=== PATIENT | male | born 1960 | race Caucasian/White ===

== ENCOUNTER 2017-11-10 16:50 | Emergency (ER) | payer OTHER ==
[~2017-11-10] VITALS: Ht 172.7 cm; Wt 104.3 kg
[~2017-11-10 16:50] MED LIST: ALBUTEROL0.09 MG/A2 INH; AUGMENTIN 875 M1 TAB PO; CLARITIN10 MG PO; IBU800 MG PO; KEFLEX500 MG PO; MEDROL DOSEPAK4 MG PO; Motrin,Rufen800 MG PO; PREDNICOT20 MG PO; PREDNISONE50 MG PO; VICODIN ES 7501 TAB PO
[2017-11-10] MEDS ORDERED: CYCLOBENZAPRINE10 MG PO (18:54)
[2017-11-10] MEDS ORDERED: NAPROSYN500 MG PO (18:54)
== END 2017-11-10 18:59 | disposition home or self-care (01) ==
LOC: ED 16:50
DX: S29.012A Strain of muscle and tendon of back wall of thorax, initial encounter (principal); R07.81 Pleurodynia; Z79.899 Other long term (current) drug therapy; W10.9XXA Fall (on) (from) unspecified stairs and steps, initial encounter; Y93.89 Activity, other specified; Y92.89 Other specified places as the place of occurrence of the external cause; Y99.9 Unspecified external cause status

== ENCOUNTER 2024-03-15 10:04 | Emergency (ER) | payer OTHER ==
[~2024-03-15] VITALS: Ht 172.7 cm; Wt 99.8 kg
[~2024-03-15 10:04] MED LIST changes: +CYCLOBENZAPRINE10 MG PO; +NAPROSYN500 MG PO
[2024-03-15] MEDS ORDERED: ATENOLOL25 MG PO (10:11)
[2024-03-15] MEDS ORDERED: DULOXETINE HCL30 MG PO (10:12)
[2024-03-15] MEDS ORDERED: PREGABALIN300 MG PO (10:12)
[2024-03-15] MEDS ORDERED: FEROSUL325 MG PO (10:12)
[2024-03-15] MEDS ORDERED: IOHEXOL 350 MG/ML 100 ML VIAL IV ONE (13:00)
[2024-03-15] MEDS ORDERED: SODIUM CHLORIDE 0.9% 100 ML BAG IV ONE (13:00)
[2024-03-15 13:14] LABS: BASO % 0.6 % (0.0-1.0); EOS # 0.2 10*3/uL (0.0-0.4); EOS % 3.9 % (1.0-4.0); HEMATOCRIT 43.8 % (42.0-52.0); LYMPH # 1.1 10*3/uL (1.3-4.4); LYMPH % 20.9 % (27.0-41.0); MEAN CELL VOLUME 99.1 fl (80.0-94.0); MEAN CORPUSCULAR HGB CONC 33.3 g/dl (33.0-37.0); MEAN PLATELET VOLUME 11.6 fl (9.6-12.3); MONO # 0.7 10*3/uL (0.1-1.0); MONO % 13.2 % (3.0-9.0); NEUT # 3.2 10*3/uL (2.3-7.9); NEUT % 60.8 % (47.0-73.0); PLATELET COUNT AUTOMATED 96 10*3/uL (130-400); RED BLOOD COUNT 4.42 10*6/uL (4.50-5.90); RED CELL DISTRI WIDTH 13.8 % (0-14.5); WHITE BLOOD COUNT 5.3 10*3/uL (4.8-10.8)
[2024-03-15 13:29] LABS: BUN 9 mg/dl (9-23); CHLORIDE 101 mmol/L (98-107); POTASSIUM 4.8 mmol/L (3.4-5.1)
[2024-03-15] MEDS ORDERED: ELIQUIS5 M1 PO (16:56)
== END 2024-03-15 17:02 | disposition home or self-care (01) ==
LOC: ED 10:04
PROVIDERS: Nurse Practitioner
DX: S50.12XA Contusion of left forearm, initial encounter (principal); I82.622 Acute embolism and thrombosis of deep veins of left upper extremity; Z79.899 Other long term (current) drug therapy; W01.0XXA Fall on same level from slipping, tripping and stumbling without subsequent striking against object, initial encounter; Y93.89 Activity, other specified; Y92.89 Other specified places as the place of occurrence of the external cause; Y99.8 Other external cause status

== ENCOUNTER 2025-01-27 16:34 | Emergency (ER) | payer OTHER ==
[2025-01-27] VITALS (12 sets, daily range): BP systolic 108–143; BP diastolic 41–71
[~2025-01-27] VITALS: Wt 104.3 kg
[2025-01-27 17:12] LABS: MEAN CELL VOLUME 75.2 fl (80.0-94.0); MEAN CORPUSCULAR HGB 20.3 pg (27.0-31.0); MEAN PLATELET VOLUME 11.3 fl (9.6-12.3); PLATELET COUNT AUTOMATED 136 10*3/uL (130-400); RED BLOOD COUNT 3.06 10*6/uL (4.50-5.90); RED CELL DISTRI WIDTH 17.2 % (0-14.5); WHITE BLOOD COUNT 5.4 10*3/uL (4.8-10.8)
[2025-01-27 17:14] LABS: MANUAL DIFF REFLEX YES
[2025-01-27 17:37] LABS: ALKALINE PHOSPHATASE 83 U/L (46-116); BUN 9 mg/dl (9-23); CHLORIDE 105 mmol/L (98-107); POTASSIUM 4.2 mmol/L (3.4-5.1); SGPT/ALT 21 U/L (5-49); TOTAL PROTEIN 6.9 gm/dL (6.0-8.0)
[2025-01-27 17:51] LABS: BASOPHILS 1 % (0-1); MICROCYTOSIS SLIGHT; PLATELET SUFFICIENCY NORMAL (NORMAL); POLYCHROMASIA SLIGHT; ROULEAUX SLIGHT; TOTAL CELLS COUNTED 100 #CELLS
[2025-01-27] MEDS ORDERED: SODIUM CHLORIDE 0.9% 500 ML IV ONE (18:03)
== END 2025-01-27 22:11 | disposition home or self-care (01) ==
LOC: ED 16:34
PROVIDERS: Nurse Practitioner Family
DX: D64.9 Anemia, unspecified (principal); I10 Essential (primary) hypertension; Z79.899 Other long term (current) drug therapy

== ENCOUNTER → 2025-01-27 | Outpatient (CLI) | payer OTHER ==
[~2025-01-27] MED LIST changes: +ATENOLOL25 MG PO; +DULOXETINE HCL30 MG PO; +ELIQUIS5 M1 PO; +FEROSUL325 MG PO; +PREGABALIN300 MG PO
[2025-01-27 14:20] LABS: HEMATOCRIT 23.6 % (42.0-52.0); MEAN CELL VOLUME 75.4 fl (80.0-94.0); MEAN CORPUSCULAR HGB 20.1 pg (27.0-31.0); MEAN CORPUSCULAR HGB CONC 26.7 g/dl (33.0-37.0); MEAN PLATELET VOLUME 10.7 fl (9.6-12.3); PLATELET COUNT AUTOMATED 136 10*3/uL (130-400); RED BLOOD COUNT 3.13 10*6/uL (4.50-5.90); RED CELL DISTRI WIDTH 17.1 % (0-14.5); WHITE BLOOD COUNT 4.8 10*3/uL (4.8-10.8)
[2025-01-27 14:26] LABS: MANUAL DIFF REFLEX YES
[2025-01-27 14:36] LABS: TOTAL PROTEIN 7.1 gm/dL (6.0-8.0)
[2025-01-27 14:46] LABS: BASOPHILS 1 % (0-1); MICROCYTOSIS SLIGHT; PLATELET SUFFICIENCY NORMAL (NORMAL); POLYCHROMASIA SLIGHT; SCHISTOCYTES MANY; TOTAL CELLS COUNTED 100 #CELLS
== END | disposition home or self-care (01) ==
LOC: LAB 13:56
PROVIDERS: ATTEND Internal Medicine Gastroenterology
DX: D64.9 Anemia, unspecified (principal); R16.0 Hepatomegaly, not elsewhere classified

== ENCOUNTER 2025-03-20 18:25 | Emergency (ER) | payer OTHER ==
[~2025-03-20] VITALS: Ht 172.7 cm; Wt 106.6 kg
[2025-03-20] VITALS (8 sets, daily range): BP systolic 133–163; BP diastolic 65–100
[2025-03-20 19:04] LABS: MEAN CELL VOLUME 74.2 fl (80.0-94.0); MEAN CORPUSCULAR HGB 19.9 pg (27.0-31.0); MEAN PLATELET VOLUME 10.6 fl (9.6-12.3); NUCLEATED RED BLOOD CELL 0.0 % (0.0-0.0); NUCLEATED RED BLOOD CELL 0.0 10*3/uL (0.0-0.0); PLATELET COUNT AUTOMATED 121 10*3/uL (130-400); RED CELL DISTRI WIDTH 19.4 % (0-14.5)
[2025-03-20 19:06] LABS: MANUAL DIFF REFLEX YES
[2025-03-20 19:23] LABS: BUN 9 mg/dl (9-23)
[2025-03-20 19:36] LABS: PLATELET SUFFICIENCY LOW (NORMAL)
[2025-03-20] MEDS ORDERED: SODIUM CHLORIDE 0.9% 500 ML IV ONE (20:53)
== END 2025-03-20 23:34 | disposition home or self-care (01) ==
LOC: ED 18:25
PROVIDERS: Internal Medicine
DX: D53.9 Nutritional anemia, unspecified (principal)

== ENCOUNTER → 2025-03-20 | Outpatient (CLI) | payer MEDICARE, OTHER ==
[2025-03-20 13:35] LABS: MEAN CELL VOLUME 73.4 fl (80.0-94.0); MEAN CORPUSCULAR HGB 19.5 pg (27.0-31.0); MEAN PLATELET VOLUME 11.1 fl (9.6-12.3); NUCLEATED RED BLOOD CELL 0.0 % (0.0-0.0); NUCLEATED RED BLOOD CELL 0.0 10*3/uL (0.0-0.0); PLATELET COUNT AUTOMATED 114 10*3/uL (130-400); RED CELL DISTRI WIDTH 19.8 % (0-14.5)
[2025-03-20 13:49] LABS: MANUAL DIFF REFLEX YES
[2025-03-20 13:54] LABS: PLATELET SUFFICIENCY LOW (NORMAL)
== END | disposition home or self-care (01) ==
LOC: LAB 12:58
PROVIDERS: ATTEND Internal Medicine Gastroenterology
DX: D64.9 Anemia, unspecified (principal)

== ENCOUNTER → 2025-06-19 | Outpatient (CLI) | payer OTHER | END | disposition home or self-care (01) | LOC: LAB 08:49 → US 09:00 | PROVIDERS: ATTEND Internal Medicine Hematology & Oncology | DX: K86.2 Cyst of pancreas (principal); K80.20 Calculus of gallbladder without cholecystitis without obstruction; K82.8 Other specified diseases of gallbladder; K90.9 Intestinal malabsorption, unspecified; D64.9 Anemia, unspecified; D50.9 Iron deficiency anemia, unspecified; K74.60 Unspecified cirrhosis of liver ==